=== PATIENT | female | born 1960 | race Caucasian/White ===

== ENCOUNTER 2017-04-20 17:32 | Emergency (ER) | payer OTHER ==
--- NOTE | ~2017-04-20 | CT2 ---
[facility] A Service of [facility] RADIOLOGY TEXT RESULTS PATIENT: SAUL TUCKER LOCATION: HECTOR : 60 UNIT #: [id number] AGE: [address]: Nigel Peter MD SEX: F ORDER DR: [id number] [facility]. [place], [place] [address] [id number] E MR#: [id number] Acc #: [id number] NAME: SAUL TUCKER : 1960 SEX: F STUDY DATE/TIME: 04/20/2017 21:16 UNIT: HECTOR ROOM: STUDY DESCRIPTION: CT Abd and Pelv W Cont Attending Physician: Nigel Peter M.D. Ordering Physician: Nigel Peter M.D. Primary Care Physician: [facility] MEDICAL IMAGING REPORT This report is preliminary unless electronic signature is present EXAM CT scan of the abdomen and pelvis with contrast 04/20/2017 HISTORY Abdomen pain, nausea, vomiting and diarrhea for 3 days, generalized abdominal pain. TECHNIQUE This CT exam was performed with one or more of the following radiation dose reduction techniques: automatic exposure control, adjustment of mA and/or kV according to patient size, and iterative reconstruction. Spiral CT was performed through the abdomen and pelvis following oral and intravenous contrast administration. FINDINGS Abdomen: There is mild fatty infiltration of the liver. The spleen, pancreas, adrenal glands and kidneys are normal. The gallbladder is surgically absent. Pelvis: The gut, mesenteric and too structures are normal. There is no free fluid in the abdomen or pelvis. The lung bases are normal. IMPRESSION 1. Fatty infiltration of the liver. 2. Surgical absence of the gallbladder. Dictated by... Alex Tucker M.D. THIS IS AN ELECTRONICALLY VERIFIED REPORT [facility] A Service of [facility] RADIOLOGY TEXT RESULTS PATIENT: SAUL TUCKER LOCATION: HECTOR : 60 UNIT #: [id number] AGE: [address]: Nigel Peter MD SEX: F ORDER DR: Alex Tucker M.D. at 04/22/2017 10:42 AM RADHIKA/suma TD: 04/21/2017 09:01 JOB #: [id number] MEDICAL IMAGING REPORT Page 1 of 1 COPY
--- NOTE | ~2017-04-20 | CR21 ---
[facility] A Service of [facility] RADIOLOGY TEXT RESULTS PATIENT: SAUL MANDUJANO LOCATION: [facility] : 60 UNIT #: [id number] AGE: [address]: Nigel Peter MD SEX: F ORDER DR: [id number] [facility] [address] [facility]. [place], [place] [address] [id number] E MR#: [id number] Acc #: [id number] NAME: SAUL MANDUJANO : 1960 SEX: F STUDY DATE/TIME: 04/20/2017 20:39 UNIT: HECTOR ROOM: STUDY DESCRIPTION: CR Ankle Min 3 Views Rt Attending Physician: Nigel Peter M.D. Ordering Physician: Nigel Peter M.D. Primary Care Physician: [facility], [facility]. MEDICAL IMAGING REPORT This report is preliminary unless electronic signature is present EXAM Right ankle, 04/20/17 HISTORY Ankle pain this morning. No trauma. Swelling. FINDINGS Three views of the ankle were obtained. Plantar calcaneal spur is present. Well-corticated bone fragments below the medial malleolus with some adjacent spur formation are compatible with old trauma. There is some spurring about the os trigonum. There is also some spurring along the lateral margin of the talus. No acute fracture or malalignment is seen. IMPRESSION Degenerative and/or old posttraumatic spurring on both sides of the ankle. No acute fracture or malalignment is seen. Dictated by... Simeon Baig Jr., M.D. THIS IS AN ELECTRONICALLY VERIFIED REPORT Simeon Baig Jr., M.D. at 04/21/2017 8:47 PM NANETTE/suma TD: 04/21/2017 07:58 JOB #: [id number] MEDICAL IMAGING REPORT Page 1 of 1 COPY
[~2017-04-20 17:32] MED LIST: ACIPHEX20 MG PO; ADVAIR 2501 DISK W/D PO; ADVAIR INH; ALBUTEROL17 GM INH; ALBUTEROL2.5 MG/0.5 IH; AMITRIPTYLINE H25 MG PO; AMITRYPTYLINE PO; ATROVENT HFA12.9 GM INH; ATROVENT15 ML IH; BICARSIM80 MG PO; DARVOCET-N 1001 TAB PO; FELDENE10 MG PO; FELDENE20 MG PO; FLEXERIL PO; FLEXERIL10 MG PO; FLONASE 0.05% N16 G1; FLOVENT DI50 MCG/DIS; GABAPENTIN600 MG PO; GAS RELIEF40 MG/0.6 PO; HCTZ PO; HYDROCHLOROTHIA25 MG PO; LORTAB 10-5001 EACH PO; LORTAB 5-325 M1 EACH PO; NEURONTIN PO; PREDNISONE PO; PROAIR HFA8.5 GM IH; PROTONIX40 MG/BLIS PO; SYMBICORT INH; VICODIN 5/500 T1 TAB PO; ZOLOFT PO; ZYRTEC PO; ZYRTEC10 M2 PO; [UNRECOGNIZED DRUG - OTHER]
[2017-04-20 20:20] LABS: URINE SOURCE CLEAN CATCH
[2017-04-20 20:24] LABS: URINE APPEARANCE CLEAR; URINE BILIRUBIN NEG (NEG); URINE BLOOD NEG (NEG); URINE COLOR YELLOW; URINE GLUCOSE NEG (NEG); URINE KETONE NEG (NEG); URINE LEUKOCYTE ESTERASE NEG (NEG); URINE NITRATE NEG (NEG); URINE PROTEIN NEG (NEG); URINE SPECIFIC GRAVITY 1.018 (1.003-1.035)
[2017-04-20 20:27] LABS: BASOPHIL# 0.1 X10e3 (0-0.3); BASOPHIL% 0.5 % (0-2.5); EOSINOPHIL# 0.5 X10e3 (0-0.7); EOSINOPHIL% 2.7 % (0.0-7.0); HEMATOCRIT 49.2 % (35.0-45.0); HEMOGLOBIN 15.9 gm/dL (12.0-16.0); LYMPHOCYTE# 4.1 X10e3 (1.0-3.5); MEAN CELL VOLUME 84.9 FL (83-96); MEAN CORPUSCULAR HEMOGLOBIN 27.4 PG (28-34); MEAN CORPUSCULAR HGB CONC 32.3 g/dL (30-36); MEAN PLATELET VOLUME 8.4 FL (6.5-11.5); MONOCYTE# 1.8 X10e3 (0-1.0); MONOCYTE% 9.8 % (3.0-12.0); PLATELET COUNT 336 X10e3 (140-420); RED BLOOD COUNT 5.79 X10e (3.90-5.30); RED CELL DISTRIBUTION WIDTH 15.2 % (11.0-15.5); WHITE BLOOD COUNT 18.4 X10e3 (4.0-10.5)
[2017-04-20 20:30] LABS: CULTURE INDICATED? NO; DIFF IND YES
[2017-04-20 20:48] LABS: ALBUMIN SERUM 4.5 g/dL (3.5-5.0); BILIRUBIN, DIRECT 0.3 mg/dL (0.0-0.2); BILIRUBIN,INDIRECT 0.8 mg/dL (0.0-0.9); BILIRUBIN,TOTAL 1.1 mg/dL (0.2-2.0); CALCIUM SERUM 9.4 mg/dL (8.4-10.2); PROTEIN TOTAL SERUM 8.9 g/dL (6.0-8.3)
[2017-04-20 20:50] LABS: PLATELET ESTIMATE NORMAL (NORMAL); POTASSIUM 2.7 mmol/L (3.5-5.1); RBC NORMAL YES
== END 2017-04-21 00:33 | disposition home or self-care (01) ==
LOC: CED 17:32
PROVIDERS: Emergency Medicine
DX: S93.401A Sprain of unspecified ligament of right ankle, initial encounter (principal); E87.6 Hypokalemia; J44.9 Chronic obstructive pulmonary disease, unspecified; X58.XXXA Exposure to other specified factors, initial encounter; Y92.9 Unspecified place or not applicable
CPT/HCPCS: 36415; 73610; 74177; 80048; 80076; 81003; 83690; 85025; 96365; 96366; 96375; 99284; J2405; Q9967